=== PATIENT | female | born 1945 | race Caucasian/White ===

== ENCOUNTER 2018-01-26 11:28 | Emergency (ER) | payer OTHER ==
[~2018-01-26] VITALS: Ht 152.4 cm; Wt 57.6 kg
[~2018-01-26 11:28] MED LIST: ALBUTEROL0.63 MG/3 IH; ASA81 MG PO; COZAAR25 MG; GABAPENTIN400 MG PO; GLUCOPHAGE XR500 MG; LEVAQUIN750 MG PO; NABUMETONE500 MG PO; NORVASC10 MG; PERCOCET 5/3251 TAB PO; SIMVASTATIN20 MG PO; SINGULAIR 10MG10 MG PO; TESSALON PERLE100 MG PO; TUSSI PRES-B L120 M1 PO; ZITHROMAX TRI-500 MG PO; [UNRECOGNIZED DRUG - OTHER] PO
[2018-01-27] MEDS ORDERED: ALBUTEROL2.5 MG/3 M IH (05:43)
== END 2018-01-27 05:48 ==
LOC: ER 11:28
DX: J45.998 Other asthma (principal)

== ENCOUNTER 2019-01-15 07:15 | Emergency (ER) | payer OTHER ==
[~2019-01-15] VITALS: Ht 162.6 cm; Wt 63.5 kg
[~2019-01-15 07:15] MED LIST changes: +ALBUTEROL2.5 MG/3 M IH
[2019-01-15] MEDS ORDERED: GABAPENTIN100 MG (07:43)
[2019-01-15] MEDS ORDERED: SYMBICORT 16010.2 GM IH ×2 (18:04→18:11)
[2019-01-15] MEDS ORDERED: SINGULAIR 10MG10 MG PO (18:04)
[2019-01-15] MEDS ORDERED: ZITHROMAX500 MG PO (18:04)
[2019-01-15] MEDS ORDERED: TUSNEL LIQUID178 ML PO ×2 (18:04→18:11)
[2019-01-15] MEDS ORDERED: SINGULAIR10 MG PO (18:13)
== END 2019-01-15 18:56 | disposition home or self-care (01) ==
LOC: ER 07:15
DX: J06.9 Acute upper respiratory infection, unspecified (principal)

== ENCOUNTER 2019-09-20 08:01 | Outpatient (CLI) | payer OTHER ==
[~2019-09-20 08:01] MED LIST changes: +GABAPENTIN100 MG; +SINGULAIR10 MG PO; +SYMBICORT 16010.2 GM IH; +TUSNEL LIQUID178 ML PO; +ZITHROMAX500 MG PO
[2019-09-20] MEDS ORDERED: ATACAND16 MG PO (10:39)
[2019-09-20] MEDS ORDERED: METFORMIN PO (10:40)
[2019-09-20] MEDS ORDERED: ACID REDUCER20 M1 PO (10:41)
[2019-09-20] MEDS ORDERED: ZOCOR20 MG PO (10:42)
[2019-09-20] MEDS ORDERED: VITAMIN D-40010 MCG PO (10:42)
== END 2019-09-20 08:09 | disposition home or self-care (01) ==
LOC: RAD 08:01
PROVIDERS: ATTEND Orthopaedic Surgery Hand Surgery
DX: M79.642 Pain in left hand (principal); Z01.811 Encounter for preprocedural respiratory examination

== ENCOUNTER 2019-09-25 05:41 | Day surgery (SDC) | payer OTHER ==
[~2019-09-25 05:41] MED LIST changes: +ACID REDUCER20 M1 PO; +ATACAND16 MG PO; +METFORMIN PO; +VITAMIN D-40010 MCG PO; +ZOCOR20 MG PO
== END 2019-09-25 21:10 | disposition home or self-care (01) ==
LOC: CIR.AMB 05:41
PROVIDERS: ATTEND Orthopaedic Surgery Hand Surgery
DX: M18.12 Unilateral primary osteoarthritis of first carpometacarpal joint, left hand (principal); Z20.828 Contact with and (suspected) exposure to other viral communicable diseases

== ENCOUNTER 2020-08-19 07:39 | Outpatient (CLI) | payer OTHER | END 2020-08-19 07:47 | disposition home or self-care (01) | LOC: RX STUDY 07:39 | PROVIDERS: ATTEND Internal Medicine Pulmonary Disease | DX: J45.30 Mild persistent asthma, uncomplicated (principal); R13.11 Dysphagia, oral phase; K31.7 Polyp of stomach and duodenum ==

== ENCOUNTER 2023-05-24 12:05 | Emergency (ER) | payer OTHER ==
[~2023-05-24] VITALS: Ht 149.9 cm; Wt 58.1 kg
[2023-05-24] MEDS ORDERED: IPRATROPIUM BROMIDE 0.5 MG/2.5 ML AMPUL.NEB IH ONE (14:30)
[2023-05-24 14:39] LABS: HEMATOCRIT 32.7 % (36.0-45.00); HEMOGLOBIN 10.9 g/dL (12.0-15.00); MEAN CELL VOLUME 88.9 fL (80.00-100.00); MEAN CORPUSCULAR HEMOGLOBIN 29.6 pg (27.00-32.0); MEAN CORPUSCULAR HGB CONC 33.4 g/dl (32.0-36.0); PLATELET COUNT 236 K/uL (150-450); RED BLOOD COUNT 3.68 M/uL (4.00-6.00); RED CELL DISTRIBUTION WIDTH 13.5 % (11.5-14.5)
[2023-05-24 14:56] LABS: URINE APPEARANCE Clear; URINE BILIRRUBIN Negative (NEGATIVE); URINE BLOOD Moderate; URINE COLOR Yellow; URINE GLUCOSE Negative (NEGATIVE); URINE LEUKOCYTE Moderate; URINE NITRATE Positive; URINE PROTEIN Negative (NEGATIVE)
[2023-05-24 14:57] LABS: URINE EPITHELIAL CELLS 17.9 uL (0.0-38.8); URINE RBC 25.1 uL (0.0-20.8); URINE WBC 461.7 uL (0.0-23.2)
[2023-05-24 15:25] LABS: URINE BACTERIA > 9821.5 uL (0.0-1933)
[2023-05-24 16:17] LABS: ALBUMIN 3.5 gm/dL (3.4-5.0); BILIRUBIN TOTAL 0.38 mg/dL (0.3-1.2); CALCIUM 9.1 mg/dL (8.5-10.1); CREATININE SERUM 1.51 mg/dL (0.55-1.02); GFR 33.33; GLOBULINA 3.5 G/DL (2.4-3.5); POTASSIUM 4.45 mEq/L (3.5-5.1)
[2023-05-24 17:21] LABS: ABG PO2 79.8 mmHg (80-100); ABG pCO2 46.1 mmHg (35-45); BASE EXCESS 2.5 mmol/l; BICARBONATE 27.9 mmol/l (23-25); SaO2 95.8 %; Tco2 29.3 mmol/l; allen test SATISFACTORY; o2 21 %; puncture site RADIAL RIGHT
[2023-05-24] MEDS ORDERED: GUAIFENESIN/DEXTROMETHORPHAN 100 MG/5 ML ML PO STA (19:30)
[2023-05-24] MEDS ORDERED: 0.9 % SODIUM CHLORIDE 500 ML IV STA (19:41)
[2023-05-24] MEDS ORDERED: LEVOFLOXACIN IN DEXTROSE IV ONE (19:45)
[2023-05-24] MEDS ORDERED: ZYRTEC10 MG PO (23:46)
[2023-05-24] MEDS ORDERED: LEVOFLOXACIN250 MG PO (23:46)
[2023-05-24] MEDS ORDERED: BENZONATATE100 MG PO (23:46)
[2023-05-24] MEDS ORDERED: SINGULAIR10 MG PO (23:46)
[2023-05-24] MEDS ORDERED: [UNRECOGNIZED DRUG - OTHER] TP (23:51)
== END 2023-05-25 00:53 | disposition home or self-care (01) ==
LOC: ER 12:06
PROVIDERS: General Practice
DX: J06.9 Acute upper respiratory infection, unspecified (principal); N39.0 Urinary tract infection, site not specified; E11.9 Type 2 diabetes mellitus without complications; I10 Essential (primary) hypertension; M19.90 Unspecified osteoarthritis, unspecified site

== ENCOUNTER 2023-09-22 14:22 | Emergency (ER) | payer OTHER ==
[~2023-09-22] VITALS: Ht 142.2 cm; Wt 56.7 kg
[~2023-09-22 14:22] MED LIST changes: +BENZONATATE100 MG PO; +LEVOFLOXACIN250 MG PO; +ZYRTEC10 MG PO; +[UNRECOGNIZED DRUG - OTHER] TP
[2023-09-22] MEDS ORDERED: CARVEDILOL ER40 MG (14:54)
[2023-09-22] MEDS ORDERED: ACETAMINOPHEN 500 MG GEL..CAP PO ONE ×2 (15:23→15:30)
[2023-09-22 15:35] LABS: HEMOGLOBIN 11.2 g/dL (12.0-15.00); MEAN CELL VOLUME 88.4 fL (80.00-100.00); PLATELET COUNT 213 K/uL (150-450); RED BLOOD COUNT 3.73 M/uL (4.00-6.00); RED CELL DISTRIBUTION WIDTH 14.1 % (11.5-14.5)
[2023-09-22] MEDS ORDERED: DIABETIC TUSSI118 M3 PO (16:37)
== END 2023-09-22 16:47 | disposition home or self-care (01) ==
LOC: ER 14:24
PROVIDERS: Nurse Practitioner Family
DX: U07.1 COVID-19 (principal); R05.9 Cough, unspecified; I10 Essential (primary) hypertension; E11.9 Type 2 diabetes mellitus without complications; Z79.84 Long term (current) use of oral hypoglycemic drugs; Z88.2 Allergy status to sulfonamides; Z88.0 Allergy status to penicillin

== ENCOUNTER 2024-01-30 07:19 | Emergency (ER) | payer OTHER ==
[~2024-01-30] VITALS: Ht 132.1 cm; Wt 56.2 kg
[~2024-01-30 07:19] MED LIST changes: +CARVEDILOL ER40 MG; +DIABETIC TUSSI118 M3 PO
[2024-01-30] MEDS ORDERED: ORPHENADRINE CITRATE 30 MG/ML AMPUL IM ONE (09:15)
[2024-01-30] MEDS ORDERED: METHYLPREDNISOLONE SOD SUCC 40 MG VIAL IM ONE (09:15)
[2024-01-30] MEDS ORDERED: NORFLEX100MG PO (10:23)
[2024-01-30] MEDS ORDERED: MEDROLPACK PO (10:23)
== END 2024-01-30 12:22 | disposition home or self-care (01) ==
LOC: ER 07:21
DX: M25.512 Pain in left shoulder (principal); I10 Essential (primary) hypertension; E11.9 Type 2 diabetes mellitus without complications; Z79.84 Long term (current) use of oral hypoglycemic drugs; Z88.0 Allergy status to penicillin; Z88.2 Allergy status to sulfonamides
CPT/HCPCS: 73030; 96372; 99283; J2360; J3490

== ENCOUNTER 2024-06-12 07:39 | Emergency (ER) | payer OTHER ==
[~2024-06-12] VITALS: Ht 134.6 cm; Wt 58.1 kg
[~2024-06-12 07:39] MED LIST changes: +MEDROLPACK PO; +NORFLEX100MG PO
[2024-06-12 08:06] VITALS: BP 155/75; O2SAT 97
[2024-06-12] MEDS ORDERED: BREO ELLIPTA I1 EACH IH (08:19)
[2024-06-12] MEDS ORDERED: ORPHENADRINE CITRATE 30 MG/ML AMPUL IM STA (09:35)
[2024-06-12] MEDS ORDERED: KETOROLAC TROMETHAMINE 60 MG VIAL IM STA (09:36)
[2024-06-12] MEDS ORDERED: KETOROLAC TROMETHAMINE 60 MG VIAL IM ONE (09:44)
[2024-06-12] MEDS ORDERED: ORPHENADRINE CITRATE 30 MG/ML AMPUL ONE (09:44)
[2024-06-12 10:28] LABS: HEMATOCRIT 35.3 % (36.0-45.00); MEAN CELL VOLUME 86.9 fL (80.00-100.00); MEAN CORPUSCULAR HEMOGLOBIN 29.5 pg (27.00-32.0); PLATELET COUNT 241 K/uL (150-450); RED BLOOD COUNT 4.06 M/uL (4.00-6.00); RED CELL DISTRIBUTION WIDTH 13.3 % (11.5-14.5)
[2024-06-12 10:46] LABS: CALCIUM 9.6 mg/dL (8.5-10.1); CREATININE SERUM 0.99 mg/dL (0.55-1.02); GFR 54.11; POTASSIUM 4.09 mEq/L (3.5-5.1)
[2024-06-12 11:06] LABS: URINE APPEARANCE Clear; URINE BILIRRUBIN Negative (NEGATIVE); URINE BLOOD Trace; URINE COLOR Yellow; URINE GLUCOSE Negative (NEGATIVE); URINE KETONE Negative (NEGATIVE); URINE LEUKOCYTE Small; URINE NITRATE Negative; URINE PROTEIN Negative (NEGATIVE); URINE UROBILINOGEN 0.2 E.U./dl
[2024-06-12 11:07] LABS: URINE BACTERIA 298.4 uL (0.0-1933); URINE EPITHELIAL CELLS 5.3 uL (0.0-38.8); URINE RBC 27.1 uL (0.0-20.8); URINE WBC 54.7 uL (0.0-23.2)
[2024-06-12 11:18] LABS: URINE CAST 0.29 uL (0.0-1.40)
== END 2024-06-12 11:39 | disposition home or self-care (01) ==
LOC: ER 07:40
PROVIDERS: General Practice
DX: M54.50 Low back pain, unspecified (principal); R53.81 Other malaise; I10 Essential (primary) hypertension; E11.9 Type 2 diabetes mellitus without complications; Z79.84 Long term (current) use of oral hypoglycemic drugs; Z88.0 Allergy status to penicillin; Z88.2 Allergy status to sulfonamides

== ENCOUNTER 2024-06-29 09:36 | Outpatient (CLI) | payer OTHER ==
[~2024-06-29 09:36] MED LIST changes: +BREO ELLIPTA I1 EACH IH
== END 2024-06-29 09:44 | disposition home or self-care (01) ==
LOC: MRI 09:36
PROVIDERS: ATTEND General Practice
DX: M54.50 Low back pain, unspecified (principal); M51.369 Other intervertebral disc degeneration, lumbar region without mention of lumbar back pain or lower extremity pain
CPT/HCPCS: 72148

== ENCOUNTER → 2024-08-09 | Emergency (ER) | payer OTHER ==
[~2024-08-09] VITALS: Ht 147.3 cm; Wt 57.6 kg
[~2024-08-09] MED LIST changes: +ALBUTEROL SULFATE 3 ML/2.5 MG AMPUL.NEB IH ONE; +ALBUTEROL SULFATE 3 ML/2.5 MG AMPUL.NEB IH SCH; +BROMPHENIRAM/PHENYLEPHRINE/DM 5 ML BLIST.PACK PO ONE; +CEFTRIAXONE SODIUM 1,000 MG VIAL IM ONE; +CEFTRIAXONE SODIUM 1,000 MG VIAL ONE; +GUAIFEN/DEXTROMETHORPHAN/PE 10 ML BLIST.PACK PO ONE; +METFORMIN HCL500 M3 PO
[2024-08-09 09:47] VITALS: BP 138/81; O2SAT 98
[2024-08-09 11:36] LABS: BASO % 0.5 % (0.1-1.2); EOS # 0.33 (0.04-0.54); EOS % 2.7 % (0.7-7.0); HEMATOCRIT 32.3 % (34.1-44.9); HEMOGLOBIN 10.8 g/dL (11.2-15.7); LYMPH # 2.36 (1.18-3.74); MEAN CORPUSCULAR HEMOGLOBIN 29.6 pg (25.6-32.2); MONO # 1.11 (0.24-0.82); MONO % 8.9 % (4.7-12.5); NEUT # 8.56 (1.56-6.13); NEUT % 68.7 % (34.0-71.1); PLATELET COUNT 237 K/uL (163-369); RED BLOOD COUNT 3.65 M/uL (3.93-5.22); RED CELL DISTRIBUTION WIDTH 13.4 % (11.6-14.4)
[2024-08-09 12:04] LABS: ALBUMIN 3.5 gm/dL (3.4-5.0); BILIRUBIN TOTAL 0.53 mg/dL (0.3-1.2); CALCIUM 9.1 mg/dL (8.5-10.1); CREATININE SERUM 1.05 mg/dL (0.55-1.02); GFR 50.56; GLOBULINA 3.6 G/DL (2.4-3.5); POTASSIUM 3.95 mEq/L (3.5-5.1); TOTAL PROTEIN 7.1 gm/dL (6.4-8.2)
[2024-08-09 12:58] LABS: PH,URINE 6.5 (5.0-8.0); URINE APPEARANCE Cloudy; URINE BILIRRUBIN Negative (NEGATIVE); URINE BLOOD Moderate; URINE COLOR Yellow; URINE GLUCOSE Negative (NEGATIVE); URINE KETONE Negative (NEGATIVE); URINE LEUKOCYTE Large; URINE NITRATE Negative; URINE PROTEIN Negative (NEGATIVE)
[2024-08-09 13:03] LABS: URINE EPITHELIAL CELLS 3.4 uL (0.0-38.8); URINE RBC 35.3 uL (0.0-20.8); URINE WBC 1854.7 uL (0.0-23.2)
[2024-08-09 13:21] LABS: URINE BACTERIA > 9821.5 uL (0.0-1933); URINE CAST 0.44 uL (0.0-1.40)
== END | disposition home or self-care (01) ==
LOC: ER 09:18
PROVIDERS: Emergency Medicine
DX: N39.0 Urinary tract infection, site not specified (principal); J45.901 Unspecified asthma with (acute) exacerbation; R05.9 Cough, unspecified; I10 Essential (primary) hypertension; E11.9 Type 2 diabetes mellitus without complications; Z79.84 Long term (current) use of oral hypoglycemic drugs; Z88.2 Allergy status to sulfonamides

== ENCOUNTER → 2025-02-16 | Emergency (ER) | payer OTHER ==
[~2025-02-16] VITALS: Ht 134.6 cm; Wt 53.5 kg
[~2025-02-16] MED LIST changes: -ALBUTEROL SULFATE 3 ML/2.5 MG AMPUL.NEB IH ONE; -ALBUTEROL SULFATE 3 ML/2.5 MG AMPUL.NEB IH SCH; -BROMPHENIRAM/PHENYLEPHRINE/DM 5 ML BLIST.PACK PO ONE; -CEFTRIAXONE SODIUM 1,000 MG VIAL IM ONE; +CEFTRIAXONE SODIUM 1,000 MG VIAL IV ONE; -GUAIFEN/DEXTROMETHORPHAN/PE 10 ML BLIST.PACK PO ONE; +KETOROLAC TROMETHAMINE 15 MG VIAL IM ONE; +KETOROLAC TROMETHAMINE 30 MG VIAL ONE
[2025-02-16 07:46] VITALS: BP 166/77; O2SAT 99
[2025-02-16 09:26] LABS: URINE APPEARANCE Cloudy; URINE BILIRRUBIN Negative (NEGATIVE); URINE BLOOD NHT; URINE COLOR Yellow; URINE GLUCOSE Negative (NEGATIVE); URINE KETONE Negative (NEGATIVE); URINE LEUKOCYTE Moderate; URINE NITRATE Negative; URINE PROTEIN Negative (NEGATIVE); URINE UROBILINOGEN 1.0 E.U./dl
[2025-02-16 09:30] LABS: URINE RBC 28.8 uL (0.0-20.8); URINE WBC 986.8 uL (0.0-23.2)
[2025-02-16 09:32] LABS: URINE BACTERIA > 9821.5 uL (0.0-1933); URINE CAST 0.00 uL (0.0-1.40); URINE EPITHELIAL CELLS 1.2 uL (0.0-38.8)
[2025-02-16 09:47] LABS: BASO % 0.5 % (0.1-1.2); EOS # 0.16 (0.04-0.54); EOS % 1.7 % (0.7-7.0); LYMPH # 2.21 (1.18-3.74); LYMPH % 23.2 % (19.3-53.1); MEAN PLATELET VOLUME 9.50 fl (9.4-12.4); MONO # 0.71 (0.24-0.82); MONO % 7.5 % (4.7-12.5); NEUT # 6.38 (1.56-6.13); NEUT % 66.9 % (34.0-71.1); RED CELL DISTRIBUTION WIDTH 13.1 % (11.6-14.4)
[2025-02-16 10:27] LABS: BUN CREA RATIO 23.0 (7.0-25.0); CREATININE SERUM 1.0 mg/dL (0.55-1.02); GFR 53.35; GLUCOSE FASTING 89.0 mg/dL (65-100); OSMOLALITY SERUM 288.0 MOSM/KG (275-295)
== END | disposition home or self-care (01) ==
LOC: ER 07:17
PROVIDERS: Emergency Medicine
DX: N39.0 Urinary tract infection, site not specified (principal); M54.59 Other low back pain; R30.0 Dysuria; E11.9 Type 2 diabetes mellitus without complications; Z79.84 Long term (current) use of oral hypoglycemic drugs; Z88.2 Allergy status to sulfonamides
CPT/HCPCS: 36415; 96365; 96372; 99282; J0696; J1885